=== PATIENT | male | born 1990 | race Caucasian/White ===

== ENCOUNTER 2019-02-19 18:25 | Emergency (ER) | payer OTHER, MEDICAID ==
[~2019-02-19] VITALS: Ht 167.6 cm; Wt 48.1 kg
[2019-02-19 19:20] VITALS: BP 120/80
--- NOTE | 2019-02-19 19:23 | NUR ---
TO LOBBY A/W BED AMBULATORY
--- NOTE | 2019-02-19 19:36 | NUR ---
PT ABMULATED TO ER BED 08
--- NOTE | 2019-02-19 20:27 | NUR ---
28 Y/O M PRESENTED TO ED WITH C/O R FOOT PAIN X2 WEEKS, PROGRESSIVELY WORSENING WITHIN LAST WEEK. PER PT "IT HURTS TO WALK". PT HAS NOT TAKEN MEDICATION FOR PAIN. +CMS. SKIN NORMAL FOR ETHNICITY. BILATERAL PEDAL PULSES PRESENT. NO ECCHYMOSIS NOTED. FAMILY AT BEDSIDE. WILL CONTINUE TO MONITOR.
[2019-02-19 21:45] VITALS: BP 125/70
== END 2019-02-19 21:42 | disposition home or self-care (01) ==
LOC: MED 18:25
DX: S93.501A Unspecified sprain of right great toe, initial encounter (principal); F31.9 Bipolar disorder, unspecified; W18.40XA Slipping, tripping and stumbling without falling, unspecified, initial encounter; Y93.01 Activity, walking, marching and hiking; Y92.89 Other specified places as the place of occurrence of the external cause; Y99.8 Other external cause status
CPT/HCPCS: 73630; 99283